=== PATIENT | male | born 1990 ===

== ENCOUNTER 2021-02-16 11:50 | Outpatient (CLI) | payer BC | END 2021-02-16 11:51 | disposition home or self-care (01) | LOC: LABHHL 11:50 | PROVIDERS: ATTEND Otolaryngology Sleep Medicine | DX: J32.0 Chronic maxillary sinusitis (principal); J34.2 Deviated nasal septum; J34.3 Hypertrophy of nasal turbinates | CPT/HCPCS: 88305; 88311 ==